=== PATIENT | female | born 1965 | race African-American/Black ===

== ENCOUNTER → 2023-01-24 | Outpatient (CLI) | payer MEDICARE, MEDICAID ==
[2023-01-24 13:19] LABS: CHLORIDE 108 mEq/L (98-107)
== END | disposition home or self-care (01) ==
LOC: US 10:27
PROVIDERS: ATTEND Internal Medicine
DX: M71.22 Synovial cyst of popliteal space [Baker], left knee (principal); M71.21 Synovial cyst of popliteal space [Baker], right knee; I50.9 Heart failure, unspecified; R60.0 Localized edema
CPT/HCPCS: 36415; 80053; 83880; 93970

== ENCOUNTER → 2023-03-22 | Outpatient (CLI) | payer MEDICARE, MEDICAID ==
[~2023-03-22] MED LIST: APIX5TAB PO; ATOR40TA70 PO; BACL20TA PO; COR6 PO; FERR325T6 PO; FURO80TA87 PO; IPRA3AMP31 IH; LISI20TA31 PO; MULT-1116 PO; PANT40TA51 PO
== END | disposition home or self-care (01) ==
LOC: PVL 10:40
PROVIDERS: ATTEND Internal Medicine
DX: I82.503 Chronic embolism and thrombosis of unspecified deep veins of lower extremity, bilateral (principal); R60.0 Localized edema; M25.552 Pain in left hip
CPT/HCPCS: 73502; 93923